=== PATIENT | female | born 1955 ===

== ENCOUNTER 2020-08-30 08:32 | Outpatient (CLI) | payer BC, SELFPAY ==
--- NOTE | ~2020-08-30 | DEXA_ITS ---
Bone Density Report Name: Hanna Kim Age: 65 Sex: Female Ethnicity: White Date of : 1955 Indication: osteopenia; height loss; Referring Provider: Dee, Reymundo Florian Study: Bone densitometry was performed. Exam Date: August 30, 2020 Accession number: [id number] Bone Density: Region BMD T-score Z-score Classification AP Spine (L1-L4) 0.916 -1.2 0.5 Osteopenia Femoral Neck (Left) 0.677 -1.6 -0.1 Osteopenia Total Hip (Left) 0.892 -0.4 0.7 Normal Total Hip Bilateral Avg 0.879 -0.5 0.6 Normal Femoral Neck (Right) 0.666 -1.7 -0.2 Osteopenia Total Hip (Right) 0.864 -0.6 0.5 Normal World Health Organization criteria for BMD impression classify patients as: Normal (T-score at or above -1.0), Osteopenia (T-score between -1.0 and -2.5), or Osteoporosis (T-score at or below -2.5). 10-year Fracture Risk(1): Major Osteoporotic Fracture 9.0% Hip Fracture 0.9% Reported Risk Factors: [place] (), Neck BMD=0.666, BMI=27.4 (1) FRAX(R) Version 3.08. Fracture probability calculated for an untreated patient. Fracture probability may be lower if the patient has received treatment. Previous Exams: Region Exam Age BMD T-score BMD Change BMD Change Date g/cm2 vs Baseline vs Previous AP Spine(L1-L4) 08/30/2020 65 0.916 -1.2 -0.070(-7.1%)# 0.030(3.4%)* 04/17/2016 61 0.886 -1.5 -0.100(-10.2%) -0.100(-10.2%) 07/12/2010 55 0.986 -0.6 Total Hip(Left) 08/30/2020 65 0.892 -0.4 -0.060(-6.3%)# 0.059(7.0%)* 04/17/2016 61 0.834 -0.9 -0.119(-12.5%) -0.119(-12.5%) 07/12/2010 55 0.952 0.1 Total Hip(Right) 08/30/2020 65 0.864 -0.6 -0.047(-5.2%)# 0.038(4.7%)* 04/17/2016 61 0.826 -1.0 -0.086(-9.4%)# -0.086(-9.4%)# 07/12/2010 55 0.911 -0.3 *Denotes significance at 95% confidence level, LSC for AP Spine = 0.022 g/cm2, LSC for Total Hip = 0.027 g/cm2 Clinical Information Provided by Patient: Has used the following medications: Vitamin D Patient maximum height was 71 Does not regularly consume dairy products Drinks caffeinated beverages Onset of menses at age 15 Number of children 0 Impression: The patient has low bone mass, based on the Right Femoral Neck T-score. The patient has an estimated ten-year risk of hip fracture of 0.9% and an estimated ten-year risk of major fracture of 9%, based on the WHO FRAX algorithm. No significant bone loss was observed. Discussion: BONE DENSITY IS LOW AT ONE OR MORE
--- NOTE | ~2020-08-30 | MM_ITS ---
EXAMINATION: MM screening ga BI w ki HISTORY: Screening TECHNIQUE: Craniocaudal and mediolateral oblique 3-D tomosynthesis images were obtained and synthetic 2-D images were generated. CAD analysis was submitted and interpreted. COMPARISON: Comparison to multiple prior studies sequentially, with oldest reviewed study dated 08/18. BREAST PARENCHYMAL COMPOSITION: There are scattered areas of fibroglandular density. FINDINGS: There is no evidence of suspicious mass, calcification, or architectural distortion to sugg est malignancy in either breast. There has been no suspicious interval change. IMPRESSION: 1. No mammographic evidence of malignancy. 2. Recommend routine screening mammography in one year. BI-RADS Category 1: Negative Reviewed, dictated and finalized at location A.
== END 2020-08-30 08:33 | disposition home or self-care (01) ==
PROVIDERS: PCP Family Medicine Adolescent Medicine; Visit Provider Nurse Practitioner Women's Health
DX: Z12.31 Encounter for screening mammogram for malignant neoplasm of breast (principal); M85.80 Other specified disorders of bone density and structure, unspecified site
CPT/HCPCS: 77063; 77067; 77080

== ENCOUNTER 2020-09-05 11:59 | Outpatient (CLI) | payer BC, SELFPAY ==
--- NOTE | ~2020-09-05 | CT_ITS ---
EXAMINATION: CT abdomen pelvis w con DATE: 09/05/2020 13:13 INDICATION: Persistent abdominal pain in the right lower abdomen TECHNIQUE: Computed tomography (CT) of the abdomen and pelvis was performed with 100 cc Omnipaque 350 intravenous contrast. The dose-length product was 521.47 mGy-cm. Automated exposure control and iter ative reconstruction technique were employed. COMPARISON: CT dated 11/02/2011 FINDINGS: Lung bases are unremarkable. No significant pleural or pericardial effusion. Heart size nor mal. Fatty infiltration of the liver. The spleen, pancreas, adrenal glands and kidneys are unremarkable. N ormal appendix. Nonobstructive bowel gas pattern. Small nabothian cysts noted. No free air or free fl uid. Retroaortic left renal vein. Gallbladder is present. Mild lumbar spondylosis. No acute fracture or traumatic malalignment. IMPRESSION: 1. No acute abdominal abnormality. 2: Hepatic steatosis. Reviewed, dictated and finalized at location A.
[2020-09-05 12:50] LABS: Estimated Glomerular Filt Rate > 60
== END 2020-09-05 12:00 | disposition home or self-care (01) ==
LOC: ANHIMG 12:06
PROVIDERS: PCP Family Medicine Adolescent Medicine; Visit Provider Family Medicine Adolescent Medicine
DX: R10.31 Right lower quadrant pain (principal); K76.0 Fatty (change of) liver, not elsewhere classified
CPT/HCPCS: 74177; Q9967

== ENCOUNTER 2021-10-12 08:45 | Outpatient (CLI) | payer BC, SELFPAY ==
--- NOTE | ~2021-10-12 | MM_ITS ---
EXAMINATION: MM screening ga BI w ki HISTORY: Screening mammogram TECHNIQUE: Craniocaudal and mediolateral oblique 3-D tomosynthesis images were obtained and synthetic 2-D images were generated. CAD analysis was submitted and interpreted. COMPARISON: 08/30/2020, 08/28/2019 BREAST PARENCHYMAL COMPOSITION: There are scattered areas of fibroglandular density. FINDINGS: There is no evidence of suspicious mass, calcification, or architectural distortion to sugg est malignancy in either breast. There has been no suspicious interval change. IMPRESSION: 1. No mammographic evidence of malignancy. 2. Recommend routine screening mammography in one year. BI-RADS Category 1: Negative Reviewed, dictated and finalized at location D. [employer]
== END 2021-10-12 08:46 | disposition home or self-care (01) ==
LOC: ANHIMG 08:48
PROVIDERS: PCP Family Medicine Adolescent Medicine; Visit Provider Nurse Practitioner Women's Health
DX: Z12.31 Encounter for screening mammogram for malignant neoplasm of breast (principal)
CPT/HCPCS: 77063; 77067